=== PATIENT | female | born 1950 | race Caucasian/White ===

== ENCOUNTER 2018-05-30 08:00 | Outpatient (CLI) | payer MEDICARE, OTHER ==
[2018-07-28] MEDS ORDERED: ZOCOR20 MG PO (11:18)
[2018-07-28] MEDS ORDERED: ZOCOR5 MG (11:18)
[2018-07-28] MEDS ORDERED: ZANTAC150 MG PO (11:19)
[2018-08-02 14:22] VITALS: BMI 28.2
== END 2018-05-30 11:52 | disposition home or self-care (01) ==
LOC: D.MAMMO 08:00
DX: Z12.31 Encounter for screening mammogram for malignant neoplasm of breast (principal)

== ENCOUNTER → 2018-07-24 08:48 | Outpatient (CLI) | payer MEDICARE, OTHER ==
[~2018-07-24 08:48] MED LIST: HYDROCODONE-APA1 TAB PO; ZANTAC150 MG PO; ZOCOR20 MG PO; ZOCOR5 MG
[2018-08-02 14:22] VITALS: BMI 28.2
== END | disposition home or self-care (01) ==
LOC: D.CT 08:30
DX: C18.9 Malignant neoplasm of colon, unspecified (principal)

== ENCOUNTER 2018-08-01 06:50 | Inpatient (IN) | payer MEDICARE, OTHER ==
[2018-07-28 13:08] LABS: APTT 33.8 SECONDS (22.8-39.4); INR 0.97 (0.85-1.17); PROTIME 12.5 SECONDS (11.6-15.0)
[2018-07-28 13:10] LABS: CALC OSMOLALITY 280 mosm/kg (275-300); CALCIUM 8.7 mg/dL (8.5-10.1); CARBON DIOXIDE 28.6 mmol/L (21.0-32.0); CHLORIDE - SERUM 105 mmol/L (98-107); CREATININE - SERUM 0.8 mg/dL (0.6-1.3); GLUCOSE 87 mg/dL (74-106); POTASSIUM - SERUM 4.6 mmol/L (3.5-5.1); SODIUM 142 mmol/L (136-145); UREA NITROGEN 10 mg/dL (7-18); eGFR NON AFRICAN AMERICAN 76 mL/min (90-120)
[2018-07-28 13:18] LABS: BASOPHILS 0.2 % (0-2); EOSINOPHILS 0.7 % (0-7); HEMATOCRIT 35.8 % (36.0-48.0); HEMOGLOBIN 11.6 g/dL (12-16); IMMATURE GRANULOCYTES 0.2 % (0-5); LYMPHOCYTES 29.8 % (15-50); MCH 27.2 pg (26.0-34.0); MCHC 32.4 g/dL (31.0-37.0); MCV 83.8 fL (80.0-100.0); MEAN PLATELET VOLUME 11.1 fL (7.4-10.4); MONOCYTES 7.8 % (2-11); NEUTROPHILS 61.3 % (40-80); PLATELET COUNT 259 10x3/uL (130-400); RBC 4.27 10x6/uL (4.00-5.40); RDW 16.6 % (11.5-14.5); WBC 4.6 10x3/uL (4.8-10.8)
[~2018-08-01] VITALS: Ht 165.1 cm; Wt 77.1 kg
[2018-08-01] VITALS (10 sets, daily range): BP systolic 97–126; BP diastolic 58–76; BMI 29.0; BMI 28.3
--- NOTE | ~2018-08-01 | OP ---
PATIENT NAME: CHATO STAFFORD MEDICAL RECORD: [id number] :52 LOCATION:[id number] ADMISSION DATE:08/01/18 SURGEON: BARAK VUONG MD DATE OF OPERATION: 08/01/2018 PREOPERATIVE DIAGNOSES: 1. Colon cancer of the ascending colon. 2. Hypercholesterolemia. 3. Asthma. 4. Irritable bowel syndrome. POSTOPERATIVE DIAGNOSES: 1. Colon cancer of the ascending colon. 2. Hypercholesterolemia. 3. Asthma. 4. Irritable bowel syndrome. PROCEDURE: Hand-assisted laparoscopic right hemicolectomy. SURGEON: Barak Vuong MD CAD DRAFTER: Timi Lanza REPORT OF OPERATION: The patient's abdomen was prepped and draped in sterile fashion. A cutdown incision was made around the patient's umbilicus. Electrocautery was used to dissect through the subcutaneous tissues to the fascia and the fascia was opened up until we entered the abdominal cavity. With finger dissection, I took down some adhesions of the omentum to the anterior abdominal wall. After this was completed then the Gelport was inserted with a 5-mm trocar within it. After the abdomen was insufflated, then a 5 mm trocar was placed in the epigastrium and another was placed in the right subcostal region. The patient had some adhesions present in the pelvis and right lateral abdomen. I was able to tease these down with blunt dissection and electrocautery. Eventually, we started our dissection of the right colon by mobilizing it medially. This was done by taking down the white line of Toldt using electrocautery. As we mobilized this, we took down some adhesions towards the pelvis, mobilizing the distal small bowel. We also mobilized the hepatic flexure around to about the mid transverse colon. Once we had it completely mobilized and we eviscerated it through the abdominal wound. The distal small bowel was transected with a 60 blue load JOHANNA stapler and the proximal transverse colon was transected with a 60 blue load JOHANNA stapler. We took down the mesentery with sequential clamp and tie technique using 3-0 silk ties. Once the specimen was completely excised, it was sent off for permanent. We performed a [id number]-vy-qsyv anastomosis of the transverse colon to the distal small bowel again using a 60 blue load JOHANNA stapler with the enterotomies being closed off with a 30 blue load TA stapler. We oversewed the staple lines using Lemberted 3-0 silks. We then placed the bowel back into the abdominal cavity. After we reinsufflated the abdomen, the abdomen was irrigated out and care was taken to assure there was no sign of any active bleeding. We inspected the liver and saw no evidence of any metastatic lesions present. The remainder of the abdominal wall appeared to be clear of any tumor. At this point, the ports and insufflation were then removed. The midline fascia was closed with a running #1 loop PDS times 2. We then reapproximated the subcutaneous tissues with interrupted 3-0 Vicryl and closed the skin with junito. OPERATIVE REPORT [id number] CHATO STAFFORD COMPLICATIONS: None. CONDITION: Stable. ANESTHESIA: General endotracheal. BLOOD LOSS: 100 mL. 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
[~2018-08-01 06:50] MED LIST changes: -HYDROCODONE-APA1 TAB PO
[2018-08-02 06:11] LABS: BASOPHILS 0.1 % (0-2); EOSINOPHILS 0 % (0-7); HEMATOCRIT 29.9 % (36.0-48.0); HEMOGLOBIN 9.5 g/dL (12-16); LYMPHOCYTES 16.3 % (15-50); MCH 26.9 pg (26.0-34.0); MCHC 31.8 g/dL (31.0-37.0); MCV 84.7 fL (80.0-100.0); MEAN PLATELET VOLUME 11.2 fL (7.4-10.4); MONOCYTES 6.9 % (2-11); NEUTROPHILS 76.7 % (40-80); RBC 3.53 10x6/uL (4.00-5.40); RDW 16.7 % (11.5-14.5); WBC 6.7 10x3/uL (4.8-10.8)
[2018-08-02 06:27] LABS: CALC OSMOLALITY 277 mosm/kg (275-300); CALCIUM 7.9 mg/dL (8.5-10.1); CARBON DIOXIDE 24.9 mmol/L (21.0-32.0); CHLORIDE - SERUM 108 mmol/L (98-107); CREATININE - SERUM 0.7 mg/dL (0.6-1.3); GLUCOSE 114 mg/dL (74-106); POTASSIUM - SERUM 3.7 mmol/L (3.5-5.1); SODIUM 140 mmol/L (136-145); UREA NITROGEN 6 mg/dL (7-18); eGFR NON AFRICAN AMERICAN 89 mL/min (90-120)
[2018-08-02 06:30] LABS: PLATELET COUNT 191 10x3/uL (130-400)
[2018-08-02 08:30] VITALS: BP 140/58
[2018-08-02 11:30] VITALS: BP 128/53
[2018-08-02 14:22] VITALS: Ht 165.1 cm; Wt 77.1 kg
[2018-08-02 15:30] VITALS: BP 132/57
[2018-08-02 21:13] VITALS: BP 126/52
[2018-08-03 05:14] VITALS: BP 146/48
[2018-08-03 06:20] LABS: BASOPHILS 0.2 % (0-2); EOSINOPHILS 0.3 % (0-7); HEMOGLOBIN 8.3 g/dL (12-16); IMMATURE GRANULOCYTES 0.2 % (0-5); LYMPHOCYTES 14.5 % (15-50); MCH 26.9 pg (26.0-34.0); MCHC 31.9 g/dL (31.0-37.0); MCV 84.1 fL (80.0-100.0); MEAN PLATELET VOLUME 11.2 fL (7.4-10.4); MONOCYTES 7.1 % (2-11); NEUTROPHILS 77.7 % (40-80); PLATELET COUNT 178 10x3/uL (130-400); RBC 3.09 10x6/uL (4.00-5.40); RDW 16.9 % (11.5-14.5); WBC 6.2 10x3/uL (4.8-10.8)
[2018-08-03 06:41] LABS: CALC OSMOLALITY 275 mosm/kg (275-300); CALCIUM 7.4 mg/dL (8.5-10.1); CARBON DIOXIDE 22.4 mmol/L (21.0-32.0); CHLORIDE - SERUM 108 mmol/L (98-107); CREATININE - SERUM 0.6 mg/dL (0.6-1.3); GLUCOSE 95 mg/dL (74-106); POTASSIUM - SERUM 3.4 mmol/L (3.5-5.1); SODIUM 140 mmol/L (136-145); eGFR NON AFRICAN AMERICAN > 90 mL/min (90-120)
[2018-08-03 06:47] LABS: UREA NITROGEN 4 mg/dL (7-18)
[2018-08-03 09:30] VITALS: BP 138/50
[2018-08-03] MEDS ORDERED: HYDROCODONE-APA1 TAB PO (09:40)
[2018-08-03 12:34] VITALS: BP 145/64
[2018-08-03 18:35] VITALS: BP 142/62
[2018-08-03 21:05] VITALS: BP 141/63
[2018-08-04 05:07] VITALS: BP 154/74
[2018-08-04 08:44] VITALS: BP 163/69
== END 2018-08-04 11:30 | disposition home or self-care (01) | DRG 331 ==
LOC: D.MS 06:50 → D.SDCHOLD 06:50 → D.MS 11:41
PROVIDERS: Anesthesiology; Surgery
PROC: 0DTF0ZZ Resection of Right Large Intestine, Open Approach (ICD-10-PCS; principal; 2018-08-01 09:00)
DX: C18.2 Malignant neoplasm of ascending colon (principal); E78.00 Pure hypercholesterolemia, unspecified; J45.909 Unspecified asthma, uncomplicated; K58.9 Irritable bowel syndrome, unspecified

== ENCOUNTER → 2018-11-22 15:21 | Outpatient (CLI) | payer MEDICARE, OTHER ==
[2018-08-02 14:22] VITALS: BMI 28.2
[~2018-11-22 15:21] MED LIST changes: +HYDROCODONE-APA1 TAB PO
[2018-11-22 15:53] LABS: BASOPHILS 0.2 % (0-2); EOSINOPHILS 0.7 % (0-7); HEMOGLOBIN 10.1 g/dL (12-16); IMMATURE GRANULOCYTES 0.2 % (0-5); LYMPHOCYTES 30.5 % (15-50); MCH 25.8 pg (26.0-34.0); MCHC 31.6 g/dL (31.0-37.0); MCV 81.6 fL (80.0-100.0); MEAN PLATELET VOLUME 10.6 fL (7.4-10.4); MONOCYTES 7.3 % (2-11); NEUTROPHILS 61.1 % (40-80); RBC 3.92 10x6/uL (4.00-5.40); RDW 15.8 % (11.5-14.5); WBC 6.1 10x3/uL (4.8-10.8)
[2018-11-22 15:58] LABS: PLATELET COUNT 228 10x3/uL (130-400)
[2018-11-22 16:14] LABS: ALBUMIN 3.5 g/dL (3.4-5.0); BILIRUBIN - DIRECT 0.07 mg/dL (0.00-0.30); BILIRUBIN - INDIRECT 0.06 mg/dL (0.00-1.00); BILIRUBIN - TOTAL 0.13 mg/dL (0.2-1.3)
== END | disposition home or self-care (01) ==
LOC: D.LAB 15:21
PROVIDERS: Surgery
DX: Z85.038 Personal history of other malignant neoplasm of large intestine (principal)

== ENCOUNTER → 2019-02-19 11:10 | Outpatient (CLI) | payer MEDICARE, OTHER ==
[2018-08-02 14:22] VITALS: BMI 28.2
[2019-02-19 11:38] LABS: BASOPHILS 0.1 % (0-2); EOSINOPHILS 0.8 % (0-7); HEMATOCRIT 36.9 % (36.0-48.0); HEMOGLOBIN 11.6 g/dL (12-16); IMMATURE GRANULOCYTES 0.1 % (0-5); LYMPHOCYTES 27.4 % (15-50); MCH 26.9 pg (26.0-34.0); MCHC 31.4 g/dL (31.0-37.0); MCV 85.6 fL (80.0-100.0); MONOCYTES 8.1 % (2-11); NEUTROPHILS 63.5 % (40-80); PLATELET COUNT 254 10x3/uL (130-400); RBC 4.31 10x6/uL (4.00-5.40); RDW 16.9 % (11.5-14.5); WBC 7.9 10x3/uL (4.8-10.8)
[2019-02-19 11:55] LABS: ALBUMIN 3.8 g/dL (3.4-5.0); BILIRUBIN - DIRECT 0.06 mg/dL (0.00-0.30); BILIRUBIN - INDIRECT 0.03 mg/dL (0.00-1.00); BILIRUBIN - TOTAL 0.09 mg/dL (0.2-1.3); PROTEIN - SERUM 7.3 g/dL (6.4-8.2)
== END | disposition home or self-care (01) ==
LOC: D.LAB 11:10
PROVIDERS: ATTEND Surgery
DX: Z85.038 Personal history of other malignant neoplasm of large intestine (principal)

== ENCOUNTER → 2019-05-30 16:30 | Outpatient (CLI) | payer MEDICARE, OTHER ==
[2018-08-02 14:22] VITALS: BMI 28.2
[2019-05-30 16:56] LABS: BASOPHILS 0.2 % (0-2); EOSINOPHILS 0.4 % (0-7); HEMATOCRIT 36.4 % (36.0-48.0); HEMOGLOBIN 11.9 g/dL (12-16); MCH 28.4 pg (26.0-34.0); MCHC 32.7 g/dL (31.0-37.0); MCV 86.9 fL (80.0-100.0); MEAN PLATELET VOLUME 9.9 fL (7.4-10.4); MONOCYTES 6.8 % (2-11); NEUTROPHILS 57.6 % (40-80); PLATELET COUNT 214 10x3/uL (130-400); RBC 4.19 10x6/uL (4.00-5.40); RDW 16.5 % (11.5-14.5); WBC 5.4 10x3/uL (4.8-10.8)
[2019-05-30 17:15] LABS: ALBUMIN 3.9 g/dL (3.4-5.0); BILIRUBIN - DIRECT 0.07 mg/dL (0.00-0.30); BILIRUBIN - INDIRECT 0.18 mg/dL (0.00-1.00); BILIRUBIN - TOTAL 0.25 mg/dL (0.2-1.3); PROTEIN - SERUM 7.1 g/dL (6.4-8.2)
== END | disposition home or self-care (01) ==
LOC: D.LAB 16:30
PROVIDERS: ATTEND Surgery
DX: Z85.038 Personal history of other malignant neoplasm of large intestine (principal)

== ENCOUNTER → 2019-10-03 12:29 | Outpatient (CLI) | payer MEDICARE, OTHER ==
[2018-08-02 14:22] VITALS: BMI 28.2
[2019-10-03 13:07] LABS: BASOPHILS 0.3 % (0-2); EOSINOPHILS 0 % (0-7); HEMOGLOBIN 13.2 g/dL (12-16); IMMATURE GRANULOCYTES 0.2 % (0-5); LYMPHOCYTES 26.8 % (15-50); MCH 30.8 pg (26.0-34.0); MCV 93.2 fL (80.0-100.0); MEAN PLATELET VOLUME 10.9 fL (7.4-10.4); MONOCYTES 5.9 % (2-11); NEUTROPHILS 66.8 % (40-80); PLATELET COUNT 246 10x3/uL (130-400); RBC 4.29 10x6/uL (4.00-5.40); RDW 13.3 % (11.5-14.5); WBC 6.6 10x3/uL (4.8-10.8)
[2019-10-03 13:19] LABS: ALBUMIN 4.1 g/dL (3.4-5.0); ALKALINE PHOSPHATASE 76 U/L (46-116); ALT (SGPT) 27 U/L (10-68); BILIRUBIN - TOTAL 0.29 mg/dL (0.2-1.3); CALC OSMOLALITY 276 mosm/kg (275-300); CALCIUM 8.9 mg/dL (8.5-10.1); CARBON DIOXIDE 25.6 mmol/L (21.0-32.0); CHLORIDE - SERUM 105 mmol/L (98-107); CREATININE - SERUM 0.7 mg/dL (0.6-1.3); GLUCOSE 98 mg/dL (74-106); SODIUM 140 mmol/L (136-145); UREA NITROGEN 6 mg/dL (7-18); eGFR NON AFRICAN AMERICAN 88 mL/min (90-120)
== END | disposition home or self-care (01) ==
LOC: D.CT 12:29
PROVIDERS: ATTEND Surgery
DX: Z90.49 Acquired absence of other specified parts of digestive tract (principal); C18.2 Malignant neoplasm of ascending colon

== ENCOUNTER → 2020-02-07 13:01 | Outpatient (CLI) | payer MEDICARE, OTHER ==
[2018-08-02 14:22] VITALS: BMI 28.2
[2020-02-07 13:32] LABS: BASOPHILS 0.2 % (0-2); EOSINOPHILS 0.3 % (0-7); HEMATOCRIT 41.1 % (36.0-48.0); HEMOGLOBIN 13.6 g/dL (12-16); LYMPHOCYTES 24.3 % (15-50); MCH 31.2 pg (26.0-34.0); MCHC 33.1 g/dL (31.0-37.0); MCV 94.3 fL (80.0-100.0); MEAN PLATELET VOLUME 10.9 fL (7.4-10.4); MONOCYTES 6.1 % (2-11); NEUTROPHILS 69.1 % (40-80); PLATELET COUNT 232 10x3/uL (130-400); RBC 4.36 10x6/uL (4.00-5.40); RDW 12.7 % (11.5-14.5); WBC 6.5 10x3/uL (4.8-10.8)
[2020-02-07 13:52] LABS: ALBUMIN 4.1 g/dL (3.4-5.0); BILIRUBIN - DIRECT 0.09 mg/dL (0.00-0.30); BILIRUBIN - INDIRECT 0.17 mg/dL (0.00-1.00); BILIRUBIN - TOTAL 0.26 mg/dL (0.2-1.3); PROTEIN - SERUM 7.1 g/dL (6.4-8.2)
== END | disposition home or self-care (01) ==
LOC: D.LAB 13:01
PROVIDERS: ATTEND Surgery
DX: C18.9 Malignant neoplasm of colon, unspecified (principal)

== ENCOUNTER → 2020-06-26 12:25 | Outpatient (CLI) | payer MEDICARE, OTHER ==
[2018-08-02 14:22] VITALS: BMI 28.2
[2020-06-26 13:04] LABS: BASOPHILS 0.3 % (0-2); EOSINOPHILS 0.3 % (0-7); HEMATOCRIT 40.9 % (36.0-48.0); HEMOGLOBIN 13.5 g/dL (12-16); IMMATURE GRANULOCYTES 0.1 % (0-5); LYMPHOCYTES 27.6 % (15-50); MCH 31.1 pg (26.0-34.0); MCV 94.2 fL (80.0-100.0); MEAN PLATELET VOLUME 10.6 fL (7.4-10.4); MONOCYTES 6.5 % (2-11); NEUTROPHILS 65.2 % (40-80); PLATELET COUNT 224 10x3/uL (130-400); RBC 4.34 10x6/uL (4.00-5.40); RDW 12.5 % (11.5-14.5)
[2020-06-26 13:18] LABS: ALBUMIN 3.9 g/dL (3.4-5.0); ALKALINE PHOSPHATASE 72 U/L (30-120); ALT (SGPT) 32 U/L (10-68); BILIRUBIN - TOTAL 0.26 mg/dL (0.2-1.3); CALC OSMOLALITY 277 mosm/kg (275-300); CALCIUM 9.4 mg/dL (8.5-10.1); CARBON DIOXIDE 26.7 mmol/L (21.0-32.0); CHLORIDE - SERUM 106 mmol/L (98-107); CREATININE - SERUM 0.8 mg/dL (0.6-1.3); GLUCOSE 93 mg/dL (74-106); PROTEIN - SERUM 7.1 g/dL (6.4-8.2); SODIUM 140 mmol/L (136-145); UREA NITROGEN 11 mg/dL (7-18); eGFR NON AFRICAN AMERICAN 75 mL/min (90-120)
== END | disposition home or self-care (01) ==
LOC: D.LAB 12:25
PROVIDERS: ATTEND Surgery
DX: Z86.010 Personal history of colon polyps (principal)